=== PATIENT | male | born 1955 | race Caucasian/White ===

== ENCOUNTER → 2016-09-21 | Outpatient (CLI) | payer MEDICARE, MEDICAID ==
[~2016-09-21] VITALS: Ht 177.8 cm; Wt 64.4 kg
[~2016-09-21] MED LIST: CITA10TA59 PO; GABA300C8 PO; LORA-655 PO; NOR5T GT; NOR5T PO; SUCR1TAB PO; ZOLP10TA PO
[2016-09-21 09:30] VITALS: BP 124/82
[2016-09-21 10:30] VITALS: BP 128/78
[2016-09-21 12:44] LABS: Basophils # (auto) 0 uL; Basophils % (auto) 0.5 % (0.0-2.0); Eosinophils # (auto) 0.2 uL; Eosinophils % (auto) 2.4 % (0.0-7.0); Hematocrit 43.7 % (41.0-53.0); Hemoglobin 14.1 g/dL (13.5-17.5); Lymphocytes # (auto) 1.4 uL; Lymphocytes % (auto) 14.3 % (10.0-50.0); Mean Corpuscular Hemoglobin 30.5 pg (28.0-32.0); Mean Corpuscular Hgb Conc. 32.2 g/dL (32.0-36.0); Mean Corpuscular Volume 94.7 fL (80.0-100.0); Mean Platelet Volume 8.7 fL (7.4-10.4); Monocytes # (auto) 0.6 uL; Monocytes % (auto) 5.7 % (0.0-12.0); Neutrophils # (auto) 7.7 uL; Neutrophils % (auto) 77.1 % (37.0-80.0); Platelet Count (auto) 290 10^3/uL (140-450); Red Cell Distribution Width 14.3 % (11.6-16.0); White Blood Cell 9.9 10^3/uL (4.4-10.8)
[2016-09-21 13:10] LABS: Calcium 9.2 mg/dL (8.5-10.1); Magnesium 2.1 mg/dL (1.6-2.6); Potassium 3.7 mmol/L (3.5-5.1)
[2016-09-21 13:12] LABS: BUN/Creatinine Ratio 18.6
[2016-09-21 16:41] LABS: INR 1.03 (0.9-1.15); Partial Thromboplastin Time 27.5 sec (22.64-33.71); Prothrombin Time 10.6 sec (9.37-12.3)
== END | disposition home or self-care (01) ==
LOC: Rad HDHVI 09:08
PROVIDERS: ATTEND Internal Medicine Cardiovascular Disease
DX: I10 Essential (primary) hypertension (principal); E83.40 Disorders of magnesium metabolism, unspecified; D64.9 Anemia, unspecified
CPT/HCPCS: 36415; 71020; 80048; 83735; 85025; 85049; 85610; 85730; G0463

== ENCOUNTER → 2016-09-23 | Day surgery (SDC) | payer MEDICARE, MEDICAID ==
[~2016-09-23] MED LIST changes: +IOHEXOL 350 MG/ML 100ML IJ ONE; +LIDOCAINE 2%HCL (LOCAL ANESTH.) INJ 20ML MDV ONE; -NOR5T GT
== END | disposition home or self-care (01) ==
LOC: CATH 07:37
PROVIDERS: ATTEND Internal Medicine Cardiovascular Disease
DX: I42.9 Cardiomyopathy, unspecified (principal); I10 Essential (primary) hypertension
CPT/HCPCS: 93458; C1760; C1769; C1894; J1644; J7030; Q9967

== ENCOUNTER 2016-10-10 16:03 | Emergency (ER) | payer MEDICARE, MEDICAID ==
[~2016-10-10] VITALS: Ht 177.8 cm; Wt 65.8 kg
[~2016-10-10 16:03] MED LIST changes: -IOHEXOL 350 MG/ML 100ML IJ ONE; -LIDOCAINE 2%HCL (LOCAL ANESTH.) INJ 20ML MDV ONE
[2016-10-10 16:44] VITALS: BP 128/73
== END 2016-10-10 17:05 | disposition home or self-care (01) ==
LOC: ER 16:08
DX: J02.9 Acute pharyngitis, unspecified (principal); Z79.899 Other long term (current) drug therapy

== ENCOUNTER 2017-07-31 16:28 | Emergency (ER) | payer MEDICARE, MEDICAID ==
[~2017-07-31] VITALS: Ht 177.8 cm; Wt 67.1 kg
[~2017-07-31 16:28] MED LIST changes: +CITA-73 PO; -CITA10TA59 PO; +GABA-497 PO; -GABA300C8 PO; +HYD2I IL; +HYDR-4072 PO; -NOR5T PO; +TEMA30CA5 PO; -ZOLP10TA PO
[2017-07-31 17:01] VITALS: BP 162/78
[2017-07-31] MEDS ORDERED: LORazepam 2MG/ML-1ML VIAL IM ONE (17:15)
== END 2017-07-31 17:38 | disposition home or self-care (01) ==
LOC: EDBD 16:28 → ER 16:38
DX: G89.4 Chronic pain syndrome (principal); M54.5 Low back pain; Z98.890 Other specified postprocedural states
CPT/HCPCS: 96372

== ENCOUNTER 2018-02-07 14:23 | Inpatient (IN) | payer MEDICAID, MEDICARE ==
[~2018-02-07] VITALS: Ht 170.2 cm; Wt 59.0 kg
[~2018-02-07 14:23] MED LIST changes: -GABA-497 PO; +GABA300C10 PO
[2018-02-07 16:05] LABS: Basophils # (auto) 0 uL; Basophils % (auto) 0.7 % (0.0-2.0); Eosinophils # (auto) 0.1 uL; Eosinophils % (auto) 1.7 % (0.0-7.0); Hematocrit 36.8 % (41.0-53.0); Hemoglobin 11.5 g/dL (13.5-17.5); Lymphocytes # (auto) 0.8 uL; Lymphocytes % (auto) 13.3 % (10.0-50.0); Mean Corpuscular Hemoglobin 26.6 pg (28.0-32.0); Mean Corpuscular Hgb Conc. 31.3 g/dL (32.0-36.0); Mean Corpuscular Volume 84.8 fL (80.0-100.0); Monocytes # (auto) 0.3 uL; Monocytes % (auto) 5.3 % (0.0-12.0); Neutrophils # (auto) 4.7 uL; Nucleated Red Blood Cells % 0.1 %; Platelet Count (auto) 235 10^3/uL (140-450); Red Blood Cells 4.34 10^6/uL (4.5-5.90); Red Cell Distribution Width 18.9 % (11.8-14.3)
[2018-02-07 16:19] LABS: Alanine Aminotransferase 18 U/L (16-61); Albumin 3.5 g/dL (3.4-5.0); Alkaline Phosphatase 88 U/L (45-117); Anion Gap 8 (5-15); Aspartate Aminotransferase 14 U/L (15-37); Bilirubin, Total 0.1 mg/dL (0.2-1.0); Blood Alcohol < 3.0 mg/dL (0-5); Blood Urea Nitrogen 16 mg/dL (7-18); Calcium 8.4 mg/dL (8.5-10.1); Carbon Dioxide 21 mmol/L (21-32); Chloride 113 mmol/L (98-107); GFR African American 126 mL/min; GFR Non-African American 104 mL/min; Glucose 92 mg/dL (74-106); Potassium 3.5 mmol/L (3.5-5.1); Sodium 142 mmol/L (136-145); Total Protein 7.3 g/dL (6.4-8.2)
[2018-02-07] MEDS ORDERED: PIPERACILLIN-TAZOB 3.375GM 100 ML IV ONE (17:15)
[2018-02-07] MEDS ORDERED: LORazepam 2MG/ML-1ML VIAL IV PRN (18:15)
[2018-02-07] MEDS ORDERED: LORazepam 0.5 MG TAB PO PRN (18:15)
[2018-02-07] MEDS ORDERED: MORPHINE SULF INJ 2 MG/ML SYRINGE 1ML IV PRN (18:30)
[2018-02-07] MEDS ORDERED: DOCUSATE SOD 100 MG CAP PO PRN (18:30)
[2018-02-07] MEDS ORDERED: NITROGLYCERIN 0.4 MG SL TAB SL PRN (18:30)
[2018-02-07] MEDS ORDERED: ONDANSETRON HCL 4 MG/2 ML VIAL IV PRN (18:30)
[2018-02-07] MEDS ORDERED: ACETAMINOPHEN 325 MG TAB PO PRN (18:30)
[2018-02-07] MEDS ORDERED: cloNIDine HCL 0.1 MG TAB PO PRN (20:45)
[2018-02-07 21:00] VITALS: BP 135/75
[2018-02-07] MEDS: SODIUM CHLOR 0.9% PF (SALINE LOCK) 10ML VIAL/SYR IV SCH (21:55)
[2018-02-07] MEDS: SUCRALFATE 1 GM TAB PO SCH (21:55)
[2018-02-07] MEDS: GABAPENTIN 300 MG CAP PO SCH (21:55)
[2018-02-07 22:00] VITALS: BP 135/73
[2018-02-08] MEDS: PIPERACILLIN-TAZOB 3.375GM 100 ML IV SCH ×2 (00:53→05:45)
[2018-02-08 05:00] VITALS: BP 123/70
[2018-02-08] MEDS: SODIUM CHLOR 0.9% PF (SALINE LOCK) 10ML VIAL/SYR IV SCH ×2 (05:45→13:45)
[2018-02-08] MEDS: SUCRALFATE 1 GM TAB PO SCH ×3 (05:46→17:50)
[2018-02-08] MEDS: GABAPENTIN 300 MG CAP PO SCH ×2 (05:46→13:45)
[2018-02-08 05:50] LABS: Basophils # (auto) 0 uL; Eosinophils # (auto) 0.2 uL; Lymphocytes # (auto) 1.3 uL; Neutrophils # (auto) 2.2 uL; Nucleated Red Blood Cells % 0.1 %
[2018-02-08 05:52] LABS: Basophils % (auto) 1.1 % (0.0-2.0); Eosinophils % (auto) 4.5 % (0.0-7.0); Hematocrit 35.4 % (41.0-53.0); Lymphocytes % (auto) 32.4 % (10.0-50.0); Mean Corpuscular Hemoglobin 26.4 pg (28.0-32.0); Monocytes # (auto) 0.3 uL; Monocytes % (auto) 8.2 % (0.0-12.0); Neutrophils % (auto) 53.8 % (37.0-80.0); Platelet Count (auto) 234 10^3/uL (140-450); Red Blood Cells 4.16 10^6/uL (4.5-5.90); Red Cell Distribution Width 18.5 % (11.8-14.3); White Blood Cell 4.1 10^3/uL (4.4-10.8)
[2018-02-08 06:08] LABS: Potassium 3.5 mmol/L (3.5-5.1)
[2018-02-08 06:13] LABS: Albumin 3.2 g/dL (3.4-5.0); BUN/Creatinine Ratio 18.2; Calcium 8.5 mg/dL (8.5-10.1)
[2018-02-08 06:15] LABS: Bilirubin, Total 0.3 mg/dL (0.2-1.0); Total Protein 6.9 g/dL (6.4-8.2)
[2018-02-08] MEDS: HYDROcodone-ACET 10/325MG TAB PO PRN ×2 (07:59→13:45)
[2018-02-08 08:30] VITALS: BP 138/76
[2018-02-08] MEDS ORDERED: CITALOPRAM HYDROBR 20 MG TAB PO SCH (10:00)
[2018-02-08] MEDS ORDERED: MULTIPLE VITAMIN TAB PO SCH (10:00)
[2018-02-08] MEDS ORDERED: TOPI25TA84 (11:47)
[2018-02-08 12:30] VITALS: BP 135/85
[2018-02-08] MEDS ORDERED: LORazepam 0.5 MG TAB PO PRN (13:30)
[2018-02-08 14:38] VITALS: BP 135/85
[2018-02-08 18:02] VITALS: BP 157/77
== END 2018-02-08 19:25 | disposition home or self-care (01) | DRG 91 ==
LOC: ER 14:23 → EDBD 14:23 → TELE 14:24 → TELE-WESTW 20:27
PROVIDERS: ADMIT Internal Medicine; ATTEND Internal Medicine
DX: T85.695A Other mechanical complication of other nervous system device, implant or graft, initial encounter (principal); G92 Toxic encephalopathy; T40.691A Poisoning by other narcotics, accidental (unintentional), initial encounter; E83.51 Hypocalcemia; G40.909 Epilepsy, unspecified, not intractable, without status epilepticus; E86.0 Dehydration; K59.00 Constipation, unspecified; Y83.9 Surgical procedure, unspecified as the cause of abnormal reaction of the patient, or of later complication, without mention of misadventure at the time of the procedure; M25.562 Pain in left knee; M25.561 Pain in right knee; I10 Essential (primary) hypertension; G89.4 Chronic pain syndrome; D63.8 Anemia in other chronic diseases classified elsewhere; F17.210 Nicotine dependence, cigarettes, uncomplicated; F41.1 Generalized anxiety disorder; J32.0 Chronic maxillary sinusitis; Z82.0 Family history of epilepsy and other diseases of the nervous system; Y92.89 Other specified places as the place of occurrence of the external cause
CPT/HCPCS: 36415; 70450; 80053; 80320; 84484; 85025; 93886; 96374; J2543

== ENCOUNTER → 2018-07-13 | Outpatient (CLI) | payer MEDICARE ==
[~2018-07-13] MED LIST changes: -HYD2I IL; -TEMA30CA5 PO; +TOPI25TA84
== END | disposition home or self-care (01) ==
LOC: Rad HDHVI 13:50
PROVIDERS: ATTEND Internal Medicine Cardiovascular Disease
DX: I20.0 Unstable angina (principal); J44.9 Chronic obstructive pulmonary disease, unspecified; R07.89 Other chest pain
CPT/HCPCS: 93306

== ENCOUNTER 2021-01-12 21:02 | Emergency (ER) | payer MEDICARE ==
[~2021-01-12] VITALS: Ht 172.7 cm; Wt 59.0 kg
[2021-01-12 21:02] VITALS: BP 131/78
[2021-01-12 21:55] LABS: Basophils # (auto) 0 10 ^3/uL (0-0.2); Basophils % (auto) 0.3 % (0.0-2.0); Eosinophils # (auto) 0 10 ^3/uL (0-0.8); Eosinophils % (auto) 0.2 % (0.0-7.0); Hematocrit 40.4 % (41.0-53.0); Hemoglobin 13.1 g/dL (13.5-17.5); Lymphocytes # (auto) 0.6 10 ^3/uL (0.4-5.4); Lymphocytes % (auto) 5.8 % (10.0-50.0); Mean Corpuscular Hemoglobin 30.5 pg (28.0-32.0); Mean Corpuscular Hgb Conc. 32.4 g/dL (32.0-36.0); Mean Corpuscular Volume 94.1 fL (80.0-100.0); Monocytes # (auto) 0.6 10 ^3/uL (0-1.3); Monocytes % (auto) 5.9 % (0.0-12.0); Neutrophils # (auto) 8.4 10 ^3/uL (1.6-8.6); Neutrophils % (auto) 87.8 % (37.0-80.0); Red Blood Cells 4.29 10^6/uL (4.5-5.90); Red Cell Distribution Width 16.4 % (11.8-14.3); White Blood Cell 9.6 10^3/uL (4.4-10.8)
[2021-01-12 22:14] LABS: Albumin 3.7 g/dL (3.4-5.0); Anion Gap 6 (5-15); Blood Urea Nitrogen 35 mg/dL (7-18); Calcium 9.4 mg/dL (8.5-10.1); Carbon Dioxide 26 mmol/L (21-32); Chloride 112 mmol/L (98-107); Glucose 132 mg/dL (74-106); Magnesium 2.9 mg/dL (1.6-2.6); Potassium 4.5 mmol/L (3.5-5.1); Sodium 144 mmol/L (136-145)
[2021-01-12 22:16] LABS: INR 0.97 (0.9-1.15)
[2021-01-12 22:21] LABS: Alanine Aminotransferase 31 U/L (16-61); Alkaline Phosphatase 52 U/L (45-117); Aspartate Aminotransferase 25 U/L (15-37); BUN/Creatinine Ratio 25.4; Bilirubin, Total 0.2 mg/dL (0.2-1.0); GFR African American 66 mL/min; GFR Non-African American 55 mL/min; Total Protein 6.6 g/dL (6.4-8.2)
== END 2021-01-12 22:32 | disposition left against medical advice (07) ==
LOC: ER 21:04
DX: R11.10 Vomiting, unspecified (principal); R53.1 Weakness; Z53.21 Procedure and treatment not carried out due to patient leaving prior to being seen by health care provider
CPT/HCPCS: 36415; 80053; 83735; 83880; 84484; 85025; 85610; 85730

== ENCOUNTER 2021-10-03 10:04 | Inpatient (IN) | payer MEDICARE ==
[~2021-10-03] VITALS: Ht 170.2 cm; Wt 53.8 kg
[2021-10-03 11:23] LABS: Basophils # (auto) 0 10 ^3/uL (0-0.2); Basophils % (auto) 0.2 % (0.0-2.0); Eosinophils # (auto) 0.1 10 ^3/uL (0-0.8); Eosinophils % (auto) 0.6 % (0.0-7.0); Hematocrit 35.5 % (41.0-53.0); Hemoglobin 11.8 g/dL (13.5-17.5); Lymphocytes # (auto) 1.1 10 ^3/uL (0.4-5.4); Lymphocytes % (auto) 7.6 % (10.0-50.0); Mean Corpuscular Hemoglobin 29.2 pg (28.0-32.0); Mean Corpuscular Hgb Conc. 33.1 g/dL (32.0-36.0); Mean Corpuscular Volume 88.2 fL (80.0-100.0); Monocytes # (auto) 0.9 10 ^3/uL (0-1.3); Monocytes % (auto) 6.4 % (0.0-12.0); Neutrophils # (auto) 12.3 10 ^3/uL (1.6-8.6); Neutrophils % (auto) 85.2 % (37.0-80.0); Nucleated Red Blood Cells % 0.1 %; Red Blood Cells 4.03 10^6/uL (4.5-5.90); Red Cell Distribution Width 13.2 % (11.8-14.3); White Blood Cell 14.4 10^3/uL (4.4-10.8)
[2021-10-03 11:44] LABS: Albumin 3.1 g/dL (3.4-5.0)
[2021-10-03 11:47] LABS: BUN/Creatinine Ratio 28.3; Bilirubin, Total 0.3 mg/dL (0.2-1.0); Total Protein 6.7 g/dL (6.4-8.2)
[2021-10-03 11:56] LABS: Potassium 2.7 mmol/L (3.5-5.1)
[2021-10-03] MEDS ORDERED: IOHEXOL 300 MG/ML 100ML BOTTLE IJ ONE (12:23)
[2021-10-03] MEDS ORDERED: PANTOPRAZOLE 40 MG TAB PO ONE (12:30)
[2021-10-03] MEDS ORDERED: DONNATAL 5ml ORAL Elix (BELLADONNA ALK-PHENOBARB) PO ONE (12:30)
[2021-10-03] MEDS ORDERED: D5W/SOD CHL 0.45%/KCL 40MEQ 1,000 ML IV ONE (12:30)
[2021-10-03] MEDS ORDERED: SODIUM CHLORIDE 0.9% 1,000 ML IV ONE (12:30)
[2021-10-03] MEDS ORDERED: LIDOCAINE VISCOUS 2% 15ML UD PO ONE (12:30)
[2021-10-03] MEDS ORDERED: PROCHLORPERAZINE MALEATE 10 MG TAB PO ONE (12:30)
[2021-10-03 14:21] LABS: Magnesium 2.4 mg/dL (1.6-2.6)
[2021-10-03 14:23] LABS: INR 1.08 (0.9-1.15)
[2021-10-03] MEDS ORDERED: HYDROmorphone HCL 2 MG/ML VL IV ONE (14:45)
[2021-10-03] MEDS ORDERED: PROMETHAZINE HCL 25 MG/ML 1ML IV ONE (14:45)
[2021-10-03 14:57] LABS: Urine Bacteria FEW /hpf (None Seen); Urine Blood Negative /uL (Negative); Urine Specific Gravity 1.032 (1.001-1.035); Urine WBC 1 /hpf (0 - 3)
[2021-10-03 15:15] LABS: Alcohol, Urine < 3.0 mg/dL (0-10); Amphetamine Screen, Urine NEGATIVE (NEGATIVE); Barbiturate Scree,Urine NEGATIVE (NEGATIVE); Benzodiazephine Screen, Urine POSITIVE (NEGATIVE); Cannabinoid Screen, Urine NEGATIVE (NEGATIVE); Cocaine Screen, Urine NEGATIVE (NEGATIVE); Opiate Scree,Urine NEGATIVE (NEGATIVE); Phencyclidine Screen, Urine NEGATIVE (NEGATIVE)
[2021-10-03] MEDS ORDERED: LORazepam 0.5 MG TAB PO PRN (17:00)
[2021-10-03] MEDS ORDERED: ACETAMINOPHEN 325 MG TAB PO PRN (17:00)
[2021-10-03] MEDS ORDERED: ALUM & MAG HYDROX-SIMETH LIQ(MAALOX) 30 ML PO PRN (17:00)
[2021-10-03] MEDS ORDERED: DOCUSATE SOD 100 MG CAP PO PRN (17:00)
[2021-10-03] MEDS ORDERED: NITROGLYCERIN 0.4 MG SL TAB SL PRN (17:00)
[2021-10-03] MEDS: SODIUM CHLORIDE 0.9% 1,000 ML IV SCH (17:19)
[2021-10-03] MEDS: HYDROmorphone HCL 2 MG/ML VL IV PRN ×2 (17:33→21:40)
[2021-10-03] MEDS: ONDANSETRON HCL 4 MG/2 ML VIAL IV PRN ×2 (17:34→21:40)
[2021-10-03] MEDS: MORPHINE SULFATE INJECTION 2 MG/ML SYRG IV PRN (21:08)
[2021-10-04] MEDS: ONDANSETRON HCL 4 MG/2 ML VIAL IV PRN ×3 (01:31→10:52)
[2021-10-04] MEDS: HYDROmorphone HCL 2 MG/ML VL IV PRN ×5 (01:32→22:13)
[2021-10-04] MEDS: SODIUM CHLORIDE 0.9% 1,000 ML IV SCH (06:42)
[2021-10-04] MEDS: cefTRIAXone 1GM/50ML D5W 50 ML IV SCH (10:51)
[2021-10-04] MEDS: PANTOPRAZOLE 40 MG/10 ML VIAL INJ IV SCH ×2 (11:04→22:12)
[2021-10-04 11:20] LABS: Basophils # (auto) 0 10 ^3/uL (0-0.2); Basophils % (auto) 0.4 % (0.0-2.0); Eosinophils # (auto) 0.1 10 ^3/uL (0-0.8); Eosinophils % (auto) 1.1 % (0.0-7.0); Hemoglobin 9.6 g/dL (13.5-17.5); Lymphocytes # (auto) 1.1 10 ^3/uL (0.4-5.4); Mean Corpuscular Hemoglobin 29.4 pg (28.0-32.0); Monocytes # (auto) 0.7 10 ^3/uL (0-1.3); Monocytes % (auto) 7.5 % (0.0-12.0); Neutrophils # (auto) 7.9 10 ^3/uL (1.6-8.6); Nucleated Red Blood Cells % 0.1 %; Red Blood Cells 3.26 10^6/uL (4.5-5.90); Red Cell Distribution Width 13.2 % (11.8-14.3); White Blood Cell 9.9 10^3/uL (4.4-10.8)
[2021-10-04 11:30] LABS: Potassium 3.5 mmol/L (3.5-5.1)
[2021-10-04 11:36] LABS: Albumin 2.4 g/dL (3.4-5.0); BUN/Creatinine Ratio 27.2; Bilirubin, Total 0.2 mg/dL (0.2-1.0); Calcium 7.7 mg/dL (8.5-10.1); Total Protein 5.3 g/dL (6.4-8.2)
[2021-10-04 17:00] VITALS: BP 113/64
[2021-10-04] MEDS: NYSTATIN (MOUTH-THROAT) 500,000 UNITS/5 ML SUSP MT SCH ×2 (17:36→22:12)
[2021-10-04 18:34] VITALS: BP 113/64
[2021-10-04 22:00] VITALS: BP 117/67
[2021-10-05] MEDS: SODIUM CHLORIDE 0.9% 1,000 ML IV SCH ×3 (00:36→20:40)
[2021-10-05] MEDS: MORPHINE SULFATE INJECTION 2 MG/ML SYRG IV PRN (02:12)
[2021-10-05] MEDS: HYDROmorphone HCL 2 MG/ML VL IV PRN ×4 (04:05→20:30)
[2021-10-05 05:00] VITALS: BP 121/74
[2021-10-05] MEDS: NYSTATIN (MOUTH-THROAT) 500,000 UNITS/5 ML SUSP MT SCH ×4 (05:44→21:56)
[2021-10-05 07:32] LABS: Basophils # (auto) 0 10 ^3/uL (0-0.2); Basophils % (auto) 0.6 % (0.0-2.0); Eosinophils # (auto) 0.1 10 ^3/uL (0-0.8); Eosinophils % (auto) 1.3 % (0.0-7.0); Hematocrit 28.4 % (41.0-53.0); Hemoglobin 9.5 g/dL (13.5-17.5); Lymphocytes % (auto) 13.5 % (10.0-50.0); Mean Corpuscular Hemoglobin 29.7 pg (28.0-32.0); Mean Corpuscular Hgb Conc. 33.6 g/dL (32.0-36.0); Mean Corpuscular Volume 88.6 fL (80.0-100.0); Monocytes # (auto) 0.5 10 ^3/uL (0-1.3); Monocytes % (auto) 6.8 % (0.0-12.0); Neutrophils # (auto) 5.8 10 ^3/uL (1.6-8.6); Neutrophils % (auto) 77.8 % (37.0-80.0); Nucleated Red Blood Cells % 0.1 %; Red Cell Distribution Width 13.3 % (11.8-14.3); White Blood Cell 7.5 10^3/uL (4.4-10.8)
[2021-10-05 08:02] LABS: BUN/Creatinine Ratio 28.2; Calcium 7.9 mg/dL (8.5-10.1); Magnesium 3.5 mg/dL (1.6-2.6); Potassium 3.6 mmol/L (3.5-5.1)
[2021-10-05] MEDS: PANTOPRAZOLE 40 MG/10 ML VIAL INJ IV SCH ×2 (08:23→21:56)
[2021-10-05] MEDS: cefTRIAXone 1GM/50ML D5W 50 ML IV SCH (08:25)
[2021-10-05 08:51] VITALS: BP 118/65
[2021-10-05] MEDS ORDERED: LIDOCAINE VISCOUS 2% 15ML UD ONE (11:57)
[2021-10-05] MEDS ORDERED: SODIUM CHLORIDE LOCK 10 ML ONE (12:10)
[2021-10-05] MEDS ORDERED: MIDAZOLAM HCL 2MG/2ML 2ml VIAL (1mg/ml) ONE (12:10)
[2021-10-05] MEDS ORDERED: PROPOFOL 10 MG/ML 20 ML IV ONE (12:10)
[2021-10-05] MEDS ORDERED: fentaNYL CITRATE 100 MCG/2 ML VL ONE (12:11)
[2021-10-05 13:00] VITALS: BP_SYST 100; BP_SYST 128; BP_DIAS 51; BP_DIAS 58
[2021-10-05 16:56] VITALS: BP 120/65
[2021-10-05 20:00] VITALS: BP 136/66
[2021-10-06] MEDS: HYDROcodone-ACET 5/325MG TAB PO PRN ×2 (01:49→06:11)
[2021-10-06] MEDS: NYSTATIN (MOUTH-THROAT) 500,000 UNITS/5 ML SUSP MT SCH ×2 (05:32→12:05)
[2021-10-06 06:00] VITALS: BP 119/73
[2021-10-06 07:39] LABS: Basophils # (auto) 0.1 10 ^3/uL (0-0.2); Eosinophils # (auto) 0.3 10 ^3/uL (0-0.8); Eosinophils % (auto) 4.4 % (0.0-7.0); Hematocrit 28.1 % (41.0-53.0); Hemoglobin 9.3 g/dL (13.5-17.5); Lymphocytes # (auto) 1.8 10 ^3/uL (0.4-5.4); Lymphocytes % (auto) 28.5 % (10.0-50.0); Mean Corpuscular Hemoglobin 29.2 pg (28.0-32.0); Mean Corpuscular Hgb Conc. 33.2 g/dL (32.0-36.0); Monocytes # (auto) 0.5 10 ^3/uL (0-1.3); Monocytes % (auto) 8.1 % (0.0-12.0); Neutrophils # (auto) 3.7 10 ^3/uL (1.6-8.6); Red Blood Cells 3.19 10^6/uL (4.5-5.90); Red Cell Distribution Width 13.5 % (11.8-14.3); White Blood Cell 6.4 10^3/uL (4.4-10.8)
[2021-10-06] MEDS: PANTOPRAZOLE 40 MG/10 ML VIAL INJ IV SCH (08:56)
[2021-10-06 09:00] VITALS: BP 114/62
[2021-10-06] MEDS: HYDROmorphone HCL 2 MG/ML VL IV PRN ×2 (09:52→14:55)
[2021-10-06 12:59] VITALS: BP 116/48
[2021-10-06] MEDS ORDERED: PANT40TA2 PO (14:37)
[2021-10-06] MEDS ORDERED: SUCR1TAB22 OR (14:37)
[2021-10-06 16:16] VITALS: BP 116/50
[2021-10-06 16:52] VITALS: BP 127/74
== END 2021-10-06 17:34 | disposition home or self-care (01) | DRG 383 ==
LOC: ER 10:04 → EDUNIT# 10:04 → EDBD 10:04 → OVERFLOW 16:46 → CENTRAL 10-04 16:09
PROVIDERS: ADMIT Family Medicine; ATTEND Internal Medicine Geriatric Medicine
PROC: 0DB98ZX Excision of Duodenum, Via Natural or Artificial Opening Endoscopic, Diagnostic (ICD-10-PCS; principal; 2021-10-05 12:11)
DX: K26.9 Duodenal ulcer, unspecified as acute or chronic, without hemorrhage or perforation (principal); E43 Unspecified severe protein-calorie malnutrition; E87.1 Hypo-osmolality and hyponatremia; K31.5 Obstruction of duodenum; E87.6 Hypokalemia; K31.89 Other diseases of stomach and duodenum; G89.29 Other chronic pain; R73.9 Hyperglycemia, unspecified; D64.9 Anemia, unspecified; F41.9 Anxiety disorder, unspecified; Z20.822 Contact with and (suspected) exposure to COVID-19; K21.00 Gastro-esophageal reflux disease with esophagitis, without bleeding; K29.80 Duodenitis without bleeding; Z79.891 Long term (current) use of opiate analgesic; Z87.11 Personal history of peptic ulcer disease
CPT/HCPCS: 36415; 71045; 74018; 74177; 80048; 80053; 80307; 81001; 83690; 83735; 84484; 85025; 85610; 85730; 86850; 86900; 86901; 87426; 93005; 96361; 96365; 96367; 96375; 96376; C9113; G0378; J0696; J2250; J2405; J2704; Q0164

== ENCOUNTER 2022-10-09 13:35 | Inpatient (IN) | payer MEDICARE ==
[~2022-10-09] VITALS: Ht 172.7 cm; Wt 72.0 kg
[~2022-10-09 13:35] MED LIST changes: +PANT40TA2 PO; -SUCR1TAB PO; +SUCR1TAB22 OR
[2022-10-09 14:24] LABS: Basophils # (auto) 0.1 10 ^3/uL (0-0.2); Basophils % (auto) 1.1 % (0.0-2.0); Eosinophils # (auto) 0.2 10 ^3/uL (0-0.8); Eosinophils % (auto) 4.2 % (0.0-7.0); Hematocrit 46.3 % (41.0-53.0); Hemoglobin 14.9 g/dL (13.5-17.5); Lymphocytes # (auto) 1.7 10 ^3/uL (0.4-5.4); Lymphocytes % (auto) 28.9 % (10.0-50.0); Mean Corpuscular Hemoglobin 30.2 pg (28.0-32.0); Mean Corpuscular Hgb Conc. 32.3 g/dL (32.0-36.0); Mean Corpuscular Volume 93.4 fL (80.0-100.0); Monocytes # (auto) 0.4 10 ^3/uL (0-1.3); Monocytes % (auto) 7.1 % (0.0-12.0); Neutrophils # (auto) 3.4 10 ^3/uL (1.6-8.6); Neutrophils % (auto) 58.7 % (37.0-80.0); Nucleated Red Blood Cells % 0.1 %; Red Blood Cells 4.95 10^6/uL (4.5-5.90); Red Cell Distribution Width 14.5 % (11.8-14.3); White Blood Cell 5.8 10^3/uL (4.4-10.8)
[2022-10-09 14:44] LABS: Albumin 3.2 g/dL (3.4-5.0); Calcium 8.4 mg/dL (8.5-10.1); Potassium 4.8 mmol/L (3.5-5.1)
[2022-10-09 14:47] LABS: BUN/Creatinine Ratio 20.4; Bilirubin, Total 0.4 mg/dL (0.2-1.0); Total Protein 6.3 g/dL (6.4-8.2)
[2022-10-09] MEDS ORDERED: FUROSEMIDE 40 MG/4 ML VIAL IV ONE (15:45)
[2022-10-09] MEDS ORDERED: ENOXAPARIN SOD 60 MG/0.6 ML SYRINGE SC ONE (15:45)
[2022-10-09] MEDS ORDERED: IOHEXOL 350 MG/ML 100ML IJ ONE (18:14)
[2022-10-09] MEDS ORDERED: AZITHROMYCIN 500MG/ 250ML 250 ML IV ONE (21:00)
[2022-10-09] MEDS ORDERED: ONDANSETRON HCL 4 MG/2 ML VIAL IV PRN (21:00)
[2022-10-09] MEDS ORDERED: ACETAMINOPHEN 325 MG TAB PO PRN (21:00)
[2022-10-09] MEDS: SODIUM CHLOR 0.9% PF (SALINE LOCK) 10ML VIAL/SYR IV SCH (22:28)
[2022-10-09] MEDS ORDERED: NITROGLYCERIN 0.4 MG SL TAB SL PRN (22:30)
[2022-10-09] MEDS ORDERED: MORPHINE SULFATE INJ 2 MG/ml SYRG IV PRN (22:30)
[2022-10-10 05:34] LABS: Basophils # (auto) 0 10 ^3/uL (0-0.2); Basophils % (auto) 1.1 % (0.0-2.0); Eosinophils # (auto) 0.2 10 ^3/uL (0-0.8); Eosinophils % (auto) 4.7 % (0.0-7.0); Hematocrit 43.7 % (41.0-53.0); Hemoglobin 13.9 g/dL (13.5-17.5); Lymphocytes # (auto) 1.4 10 ^3/uL (0.4-5.4); Mean Corpuscular Hemoglobin 30.5 pg (28.0-32.0); Mean Corpuscular Hgb Conc. 31.9 g/dL (32.0-36.0); Mean Corpuscular Volume 95.8 fL (80.0-100.0); Monocytes # (auto) 0.4 10 ^3/uL (0-1.3); Monocytes % (auto) 9.8 % (0.0-12.0); Neutrophils % (auto) 49.4 % (37.0-80.0); Nucleated Red Blood Cells % 0.1 %; Red Blood Cells 4.56 10^6/uL (4.5-5.90); Red Cell Distribution Width 15.3 % (11.8-14.3); White Blood Cell 4.1 10^3/uL (4.4-10.8)
[2022-10-10 05:54] LABS: Albumin 2.8 g/dL (3.4-5.0); Calcium 7.9 mg/dL (8.5-10.1); Potassium 3.7 mmol/L (3.5-5.1)
[2022-10-10 05:58] LABS: BUN/Creatinine Ratio 22.5; Bilirubin, Total 0.5 mg/dL (0.2-1.0); Total Protein 5.3 g/dL (6.4-8.2)
[2022-10-10] MEDS: SODIUM CHLOR 0.9% PF (SALINE LOCK) 10ML VIAL/SYR IV SCH ×3 (06:00→23:55)
[2022-10-10] MEDS ORDERED: FAMOTIDINE (10MG/ML) 2ML VL IV SCH (10:00)
[2022-10-10] MEDS: PANTOPRAZOLE 40 MG TAB PO SCH (10:05)
[2022-10-10] MEDS: ENOXAPARIN SOD 40 MG/0.4 ML SYRINGE SC SCH (10:05)
[2022-10-10] MEDS: FUROSEMIDE 40 MG/4 ML VIAL IV SCH (10:06)
[2022-10-10] MEDS: DOCUSATE SOD 100 MG CAP PO PRN (12:19)
[2022-10-10] MEDS ORDERED: POTASSIUM CHL 20 Meq TABLET PO ONE (12:30)
[2022-10-10] MEDS ORDERED: LOVA40TA72 PO (12:34)
[2022-10-10 13:05] LABS: Cholesterol 134 mg/dL (< 200); HDL Cholesterol 36 mg/dL (40-59); LDL Cholesterol 85 mg/dL (< 100); Triglycerides 92 mg/dL (< 150)
[2022-10-10] MEDS: AZITHROMYCIN 500MG/ 250ML 250 ML IV SCH (23:27)
[2022-10-11] VITALS (7 sets, daily range): BP systolic 108–122; BP diastolic 75–86
[2022-10-11] MEDS: SODIUM CHLOR 0.9% PF (SALINE LOCK) 10ML VIAL/SYR IV SCH ×3 (05:12→21:31)
[2022-10-11 06:41] LABS: Calcium 8.8 mg/dL (8.5-10.1); Potassium 3.8 mmol/L (3.5-5.1)
[2022-10-11] MEDS: FUROSEMIDE 40 MG/4 ML VIAL IV SCH (09:02)
[2022-10-11] MEDS: PANTOPRAZOLE 40 MG TAB PO SCH (09:05)
[2022-10-11] MEDS: ENOXAPARIN SOD 40 MG/0.4 ML SYRINGE SC SCH (09:05)
[2022-10-11] MEDS: POTASSIUM CHL 20 Meq TABLET PO SCH (09:05)
[2022-10-11] MEDS: CARVEDILOL 3.125 MG TAB PO SCH ×2 (13:09→21:22)
[2022-10-11] MEDS ORDERED: metOLazone 5 MG TAB PO ONE (16:30)
[2022-10-11 16:53] LABS: INR 1.13 (0.9-1.15)
[2022-10-11] MEDS ORDERED: FUROSEMIDE 40 MG/4 ML VIAL IV ONE (17:45)
[2022-10-11] MEDS: AZITHROMYCIN 500MG/ 250ML 250 ML IV SCH (21:22)
[2022-10-12] VITALS (16 sets, daily range): BP systolic 82–132; BP diastolic 52–85
[2022-10-12] MEDS: HYDROcodone-ACET 5/325MG TAB PO PRN ×2 (01:58→06:20)
[2022-10-12 04:49] LABS: Urine Bacteria NONE SEEN /hpf (None Seen); Urine Blood Negative /uL (Negative); Urine Specific Gravity 1.017 (1.001-1.035); Urine WBC 1 /hpf (0 - 3)
[2022-10-12] MEDS: SODIUM CHLOR 0.9% PF (SALINE LOCK) 10ML VIAL/SYR IV SCH ×3 (06:21→21:21)
[2022-10-12 06:36] LABS: BUN/Creatinine Ratio 18.4; Calcium 9.1 mg/dL (8.5-10.1); Potassium 4.2 mmol/L (3.5-5.1)
[2022-10-12] MEDS ORDERED: HYDROcodone-ACET 10/325MG TAB PO PRN (09:15)
[2022-10-12] MEDS ORDERED: HYDROcodone-ACET 5/325MG TAB PO ONE (09:15)
[2022-10-12] MEDS: ENOXAPARIN SOD 40 MG/0.4 ML SYRINGE SC SCH (09:27)
[2022-10-12] MEDS: CARVEDILOL 3.125 MG TAB PO SCH ×2 (09:27→21:20)
[2022-10-12] MEDS: FUROSEMIDE 40 MG/4 ML VIAL IV SCH (09:27)
[2022-10-12] MEDS ORDERED: LIDOCAINE 2%HCL (LOCAL ANESTH.) INJ 20ML MDV ONE (09:29)
[2022-10-12] MEDS ORDERED: IODIXANOL 320MG/ML 100ML BTL IV ONE (09:29)
[2022-10-12] MEDS ORDERED: HEPARIN SODIUM (PORCINE) 5000 UNITS/ML 1ML VIAL ONE (09:47)
[2022-10-12] MEDS ORDERED: ANGIOMAX 250 MG VIAL IV ONE (09:47)
[2022-10-12] MEDS ORDERED: SODIUM CHL 0.9% 0 ML ONE (09:48)
[2022-10-12] MEDS ORDERED: MIDAZOLAM HCL 2MG/2ML 2ml VIAL (1mg/ml) ONE (09:48)
[2022-10-12] MEDS ORDERED: VERAPAMIL 2.5MG/ML INJ 2ML VIAL IV ONE (09:48)
[2022-10-12] MEDS ORDERED: fentaNYL CITRATE 100 MCG/2 ML VL ONE (09:48)
[2022-10-12] MEDS: POTASSIUM CHL 20 Meq TABLET PO SCH (14:23)
[2022-10-12] MEDS: PANTOPRAZOLE 40 MG TAB PO SCH (14:24)
[2022-10-12] MEDS: NICOTINE 21MG/24 HR TOPICAL PATCH TD SCH (14:27)
[2022-10-12] MEDS: HYDROcodone-ACET 10/325MG TAB PO PRN ×2 (15:13→21:18)
[2022-10-12] MEDS: HYDROmorphone HCL 2 MG/ML VL/or syr IV PRN ×2 (17:40→23:24)
[2022-10-12] MEDS: AZITHROMYCIN 500MG/ 250ML 250 ML IV SCH (21:21)
[2022-10-13] MEDS: HYDROcodone-ACET 10/325MG TAB PO PRN ×3 (03:26→23:23)
[2022-10-13 05:00] VITALS: BP 108/61
[2022-10-13] MEDS: SODIUM CHLOR 0.9% PF (SALINE LOCK) 10ML VIAL/SYR IV SCH ×3 (05:57→21:27)
[2022-10-13] MEDS: EMPAGLIFLOZIN 10 MG TAB PO SCH (06:05)
[2022-10-13 06:36] LABS: Potassium 5.2 mmol/L (3.5-5.1)
[2022-10-13 06:46] LABS: BUN/Creatinine Ratio 20.5; Calcium 8.3 mg/dL (8.5-10.1)
[2022-10-13] MEDS: HYDROmorphone HCL 2 MG/ML VL/or syr IV PRN ×2 (08:16→19:53)
[2022-10-13 09:00] VITALS: BP 120/78
[2022-10-13] MEDS: FUROSEMIDE 40 MG/4 ML VIAL IV SCH (09:32)
[2022-10-13] MEDS: POTASSIUM CHL 20 Meq TABLET PO SCH (09:33)
[2022-10-13] MEDS: CARVEDILOL 3.125 MG TAB PO SCH ×2 (09:33→21:16)
[2022-10-13] MEDS: ENOXAPARIN SOD 40 MG/0.4 ML SYRINGE SC SCH (09:33)
[2022-10-13] MEDS: PANTOPRAZOLE 40 MG TAB PO SCH (09:33)
[2022-10-13] MEDS: NICOTINE 21MG/24 HR TOPICAL PATCH TD SCH (09:34)
[2022-10-13] MEDS ORDERED: CARVEDILOL 3.125 MG TAB PO ONE (11:30)
[2022-10-13 12:55] VITALS: BP 130/81
[2022-10-13 16:51] VITALS: BP 103/59
[2022-10-13] MEDS: AZITHROMYCIN 500MG/ 250ML 250 ML IV SCH (21:17)
[2022-10-13] MEDS: DOCUSATE SOD 100 MG CAP PO PRN (21:23)
[2022-10-13 22:00] VITALS: BP 119/75
[2022-10-14 05:00] VITALS: BP 106/67
[2022-10-14] MEDS: SODIUM CHLOR 0.9% PF (SALINE LOCK) 10ML VIAL/SYR IV SCH ×2 (06:11→14:00)
[2022-10-14] MEDS: EMPAGLIFLOZIN 10 MG TAB PO SCH (06:28)
[2022-10-14 09:00] VITALS: BP 96/62
[2022-10-14] MEDS: PANTOPRAZOLE 40 MG TAB PO SCH (09:52)
[2022-10-14] MEDS: ENOXAPARIN SOD 40 MG/0.4 ML SYRINGE SC SCH (09:52)
[2022-10-14] MEDS: POTASSIUM CHL 20 Meq TABLET PO SCH (10:00)
[2022-10-14] MEDS: FUROSEMIDE 40 MG/4 ML VIAL IV SCH (10:00)
[2022-10-14] MEDS: NICOTINE 21MG/24 HR TOPICAL PATCH TD SCH (10:00)
[2022-10-14] MEDS: CARVEDILOL 3.125 MG TAB PO SCH (10:00)
[2022-10-14] MEDS ORDERED: CAR3125T OR (10:35)
[2022-10-14] MEDS ORDERED: FURO1TAB33 PO (10:35)
[2022-10-14] MEDS ORDERED: EMPA1TAB PO (10:35)
[2022-10-14 10:43] LABS: BUN/Creatinine Ratio 23.7; Calcium 8.2 mg/dL (8.5-10.1); Potassium 4.3 mmol/L (3.5-5.1)
[2022-10-14 13:00] VITALS: BP 97/64
[2022-10-14] MEDS: HYDROcodone-ACET 10/325MG TAB PO PRN (13:35)
[2022-10-14 16:46] VITALS: BP 97/64
[2022-10-14 17:00] VITALS: BP 101/94
== END 2022-10-14 17:52 | disposition home or self-care (01) | DRG 286 ==
LOC: ER 13:35 → TELE 22:16 → TELE-EAST 10-10 23:34
PROVIDERS: ADMIT Nurse Practitioner Family; ATTEND Internal Medicine Geriatric Medicine
PROC: 4A023N7 Measurement of Cardiac Sampling and Pressure, Left Heart, Percutaneous Approach (ICD-10-PCS; principal; 2022-10-12)
PROC: B211YZZ Fluoroscopy of Multiple Coronary Arteries using Other Contrast (ICD-10-PCS; 2022-10-12)
DX: I50.43 Acute on chronic combined systolic (congestive) and diastolic (congestive) heart failure (principal); J96.01 Acute respiratory failure with hypoxia; E44.0 Moderate protein-calorie malnutrition; I42.8 Other cardiomyopathies; J44.0 Chronic obstructive pulmonary disease with (acute) lower respiratory infection; N17.9 Acute kidney failure, unspecified; J98.11 Atelectasis; J91.8 Pleural effusion in other conditions classified elsewhere; E78.5 Hyperlipidemia, unspecified; Z20.822 Contact with and (suspected) exposure to COVID-19; E88.09 Other disorders of plasma-protein metabolism, not elsewhere classified; F17.210 Nicotine dependence, cigarettes, uncomplicated; G89.4 Chronic pain syndrome; I25.10 Atherosclerotic heart disease of native coronary artery without angina pectoris; Z96.659 Presence of unspecified artificial knee joint; Z68.24 Body mass index [BMI] 24.0-24.9, adult; Z87.11 Personal history of peptic ulcer disease; Z82.0 Family history of epilepsy and other diseases of the nervous system; Z79.899 Other long term (current) drug therapy; Z71.6 Tobacco abuse counseling
CPT/HCPCS: 36415; 71045; 71275; 80048; 80053; 80061; 81001; 83036; 83880; 84443; 84484; 85025; 85379; 85610; 86850; 86900; 86901; 87426; 93005; 93306; 93458; 96365; 99152; 99291; G0378; J2250; Q9967

== ENCOUNTER 2023-01-03 06:10 | Emergency (ER) | payer MEDICARE ==
[~2023-01-03] VITALS: Ht 172.7 cm; Wt 52.0 kg
[~2023-01-03 06:10] MED LIST changes: +CAR3125T OR; +EMPA1TAB PO; +FURO1TAB33 PO; +LOVA40TA72 PO
[2023-01-03 07:07] LABS: Eosinophils # (auto) 0.1 10 ^3/uL (0-0.8); Hemoglobin 11.8 g/dL (13.5-17.5); Lymphocytes # (auto) 1.2 10 ^3/uL (0.4-5.4); Monocytes # (auto) 0.4 10 ^3/uL (0-1.3); Nucleated Red Blood Cells % 0.1 %; White Blood Cell 5.7 10^3/uL (4.4-10.8)
[2023-01-03 07:11] LABS: Basophils # (auto) 0 10 ^3/uL (0-0.2); Basophils % (auto) 0.8 % (0.0-2.0); Eosinophils % (auto) 1.7 % (0.0-7.0); Hematocrit 37.1 % (41.0-53.0); Lymphocytes % (auto) 20.5 % (10.0-50.0); Mean Corpuscular Hemoglobin 26.7 pg (28.0-32.0); Mean Corpuscular Hgb Conc. 31.8 g/dL (32.0-36.0); Mean Corpuscular Volume 84.2 fL (80.0-100.0); Monocytes % (auto) 7.2 % (0.0-12.0); Neutrophils % (auto) 69.8 % (37.0-80.0); Red Cell Distribution Width 16.7 % (11.8-14.3)
[2023-01-03 07:13] LABS: INR 1.12 (0.9-1.15); Partial Thromboplastin Time 32.1 sec (24.6-33.4)
[2023-01-03 07:48] LABS: Albumin 3.1 g/dL (3.4-5.0); Calcium 8.4 mg/dL (8.5-10.1); Magnesium 2.1 mg/dL (1.6-2.6); Potassium 3.5 mmol/L (3.5-5.1)
[2023-01-03 07:51] LABS: BUN/Creatinine Ratio 38.2 (10.0-20.0); Bilirubin, Total 0.3 mg/dL (0.2-1.0); Total Protein 7.2 g/dL (6.4-8.2)
[2023-01-03 10:40] LABS: Urine Bacteria NONE SEEN /hpf (None Seen); Urine Blood Negative /uL (Negative); Urine Specific Gravity 1.028 (1.001-1.035); Urine WBC 1 /hpf (0 - 3)
[2023-01-03] MEDS ORDERED: PIPERACILLIN-TAZOB 3.375GM 100 ML IV ONE (11:15)
[2023-01-03] MEDS ORDERED: FUROSEMIDE 40 MG/4 ML VIAL IV ONE (11:15)
[2023-01-03] MEDS ORDERED: MORPHINE SULFATE INJ 2 MG/ml SYRG IV PRN (12:00)
[2023-01-03] MEDS ORDERED: POTASSIUM CHL 20 Meq TABLET PO ONE (12:00)
[2023-01-03] MEDS ORDERED: NITROGLYCERIN 0.4 MG SL TAB SL PRN (12:00)
[2023-01-03] MEDS ORDERED: PANTOPRAZOLE 40 MG/10 ML VIAL INJ IV ONE (12:00)
[2023-01-03] MEDS ORDERED: VANCOMYCIN PER PHARMACY 0 MG IV SCH (12:30)
[2023-01-03 13:22] LABS: Cholesterol 139 mg/dL (< 200); HDL Cholesterol 40 mg/dL (40-59); LDL Cholesterol 89 mg/dL (< 100); Triglycerides 96 mg/dL (< 150)
[2023-01-03] MEDS ORDERED: SPIRONOLACTONE 25 MG TAB PO ONE (13:45)
[2023-01-03] MEDS ORDERED: PIPERACILLIN-TAZOB 3.375GM 100 ML IV SCH (14:00)
[2023-01-03] MEDS ORDERED: VANCOMYCIN 1GM/250ML 250 ML IV ONE (14:00)
[2023-01-03] MEDS ORDERED: METR500T PO (14:27)
[2023-01-03] MEDS ORDERED: CEPH-510 PO (14:27)
[2023-01-03 14:44] VITALS: BP 123/86
[2023-01-03] MEDS ORDERED: FUROSEMIDE 40 MG/4 ML VIAL IV SCH (18:00)
[2023-01-04] MEDS ORDERED: PANTOPRAZOLE 40 MG/10 ML VIAL INJ IV SCH (10:00)
[2023-01-04] MEDS ORDERED: POTASSIUM CHL 20 Meq TABLET PO SCH (10:00)
[2023-01-04] MEDS ORDERED: ENOXAPARIN SOD 40 MG/0.4 ML SYRINGE SC SCH (10:00)
== END 2023-01-03 14:45 | disposition home or self-care (01) ==
LOC: ER 06:10
DX: I50.9 Heart failure, unspecified (principal); L03.311 Cellulitis of abdominal wall; E78.5 Hyperlipidemia, unspecified; Z88.6 Allergy status to analgesic agent; Z88.8 Allergy status to other drugs, medicaments and biological substances; Z79.899 Other long term (current) drug therapy
CPT/HCPCS: 36415; 71045; 74176; 80053; 80061; 81001; 83036; 83605; 83735; 83880; 84443; 84484; 85025; 85610; 85730; 87040; 87077; 87186; 87205; 93005; 96365; 96375; 99285; C9113; J1940; J2543

== ENCOUNTER 2023-01-24 15:46 | Emergency (ER) | payer MEDICARE ==
[~2023-01-24] VITALS: Ht 172.7 cm; Wt 51.3 kg
[~2023-01-24 15:46] MED LIST changes: +CEPH-510 PO; +METR500T PO
[2023-01-24 16:26] VITALS: BP 103/59
== END 2023-01-24 23:09 | disposition left against medical advice (07) ==
LOC: ER 15:46
DX: R22.43 Localized swelling, mass and lump, lower limb, bilateral (principal); Z53.21 Procedure and treatment not carried out due to patient leaving prior to being seen by health care provider

== ENCOUNTER 2023-01-29 13:57 | Emergency (ER) | payer MEDICARE ==
[~2023-01-29] VITALS: Ht 172.7 cm; Wt 50.0 kg
[~2023-01-29 13:57] MED LIST changes: +GABA-1250 PO; -GABA300C10 PO
[2023-01-29 15:25] LABS: Basophils % (auto) 0.5 % (0.0-2.0); Eosinophils # (auto) 0 10 ^3/uL (0-0.8); Hematocrit 39.6 % (41.0-53.0); Hemoglobin 12.7 g/dL (13.5-17.5); Lymphocytes # (auto) 0.9 10 ^3/uL (0.4-5.4)
[2023-01-29 15:26] LABS: Basophils # (auto) 0.1 10 ^3/uL (0-0.2); Lymphocytes % (auto) 9.1 % (10.0-50.0); Mean Corpuscular Hemoglobin 26.4 pg (28.0-32.0); Mean Corpuscular Volume 82.3 fL (80.0-100.0); Monocytes # (auto) 0.8 10 ^3/uL (0-1.3); Monocytes % (auto) 7.7 % (0.0-12.0); Neutrophils # (auto) 8.1 10 ^3/uL (1.6-8.6); Neutrophils % (auto) 82.7 % (37.0-80.0); Red Blood Cells 4.82 10^6/uL (4.5-5.90); White Blood Cell 9.8 10^3/uL (4.4-10.8)
[2023-01-29 15:31] LABS: Red Cell Distribution Width 22.2 % (11.8-14.3)
[2023-01-29 15:32] LABS: Nucleated Red Blood Cells % 0.5 %
[2023-01-29 15:41] LABS: Albumin 3.2 g/dL (3.4-5.0); Calcium 9.7 mg/dL (8.5-10.1); INR 1.03 (0.9-1.15); Magnesium 2.5 mg/dL (1.6-2.6)
[2023-01-29 15:43] LABS: Lactic Acid w/Reflex 2.3 mmol/L (0.4-2.0)
[2023-01-29 15:45] LABS: Bilirubin, Total 0.5 mg/dL (0.2-1.0); Phosphorus 3.6 mg/dL (2.5-4.90); Total Protein 8.2 g/dL (6.4-8.2)
[2023-01-29 16:23] LABS: Potassium 2.8 mmol/L (3.5-5.1)
[2023-01-29] MEDS ORDERED: POTASSIUM EFFERVESENT TAB 25 MEQ PO ONE (16:45)
[2023-01-29] MEDS ORDERED: IOHEXOL 300 MG/ML 100ML BOTTLE IJ ONE (17:00)
[2023-01-29] MEDS ORDERED: LORazepam 2MG/ML-1ML VIAL IV ONE (19:15)
[2023-01-29] MEDS ORDERED: chlordiazePOXIDE HCL 25 MG CAP PO ONE (20:00)
[2023-01-29 22:20] VITALS: BP 118/77
[2023-01-29] MEDS ORDERED: CHL25C GT ×2 (22:21)
[2023-01-29] MEDS ORDERED: ONDA-144 PO ×2 (22:21)
== END 2023-01-29 22:39 | disposition home or self-care (01) ==
LOC: EDBD 13:57 → ER 13:57
DX: F13.239 Sedative, hypnotic or anxiolytic dependence with withdrawal, unspecified (principal); R11.2 Nausea with vomiting, unspecified; R19.7 Diarrhea, unspecified; E78.5 Hyperlipidemia, unspecified; Z87.11 Personal history of peptic ulcer disease
CPT/HCPCS: 36415; 71045; 74177; 80053; 83605; 83690; 83735; 84100; 84484; 85025; 85610; 87040; 93005; 96374

== ENCOUNTER 2023-02-01 01:06 | Inpatient (IN) | payer MEDICARE ==
[~2023-02-01] VITALS: Ht 172.7 cm; Wt 52.0 kg
[~2023-02-01 01:06] MED LIST changes: +CHL25C GT; +ONDA-144 PO
[2023-02-01 01:52] LABS: Basophils # (auto) 0 10 ^3/uL (0-0.2); Basophils % (auto) 0.3 % (0.0-2.0); Eosinophils # (auto) 0 10 ^3/uL (0-0.8)
[2023-02-01 01:54] LABS: Eosinophils % (auto) 0.1 % (0.0-7.0); Hematocrit 37.4 % (41.0-53.0); Hemoglobin 12.1 g/dL (13.5-17.5); Lymphocytes % (auto) 9.6 % (10.0-50.0); Mean Corpuscular Hemoglobin 26.8 pg (28.0-32.0); Mean Corpuscular Hgb Conc. 32.3 g/dL (32.0-36.0); Mean Corpuscular Volume 82.7 fL (80.0-100.0); Monocytes # (auto) 0.6 10 ^3/uL (0-1.3); Monocytes % (auto) 6.5 % (0.0-12.0); Neutrophils # (auto) 8.3 10 ^3/uL (1.6-8.6); Neutrophils % (auto) 83.5 % (37.0-80.0); Red Blood Cells 4.51 10^6/uL (4.5-5.90); White Blood Cell 9.9 10^3/uL (4.4-10.8)
[2023-02-01 01:56] LABS: Red Cell Distribution Width 21.9 % (11.8-14.3)
[2023-02-01 02:00] LABS: Albumin 2.9 g/dL (3.4-5.0); BUN/Creatinine Ratio 19.7 (10.0-20.0); Calcium 10.3 mg/dL (8.5-10.1); INR 1.05 (0.9-1.15); Magnesium 2.2 mg/dL (1.6-2.6); Partial Thromboplastin Time 26.2 sec (24.6-33.4)
[2023-02-01 02:03] LABS: Bilirubin, Total 0.4 mg/dL (0.2-1.0)
[2023-02-01 02:04] LABS: Potassium 2.8 mmol/L (3.5-5.1)
[2023-02-01] MEDS: POTASSIUM CHL 20MEQ/100ML 100 ML IV SCH ×3 (02:28→06:24)
[2023-02-01] MEDS ORDERED: ONDANSETRON HCL 4 MG/2 ML VIAL IV ONE (02:30)
[2023-02-01] MEDS ORDERED: LORazepam 2MG/ML-1ML VIAL IV ONE (02:30)
[2023-02-01] MEDS ORDERED: TEMAZEPAM 15 MG CAP PO PRN (05:45)
[2023-02-01] MEDS ORDERED: ACETAMINOPHEN 325 MG TAB PO PRN (05:45)
[2023-02-01] MEDS ORDERED: LORazepam 0.5 MG TAB PO PRN (05:45)
[2023-02-01] MEDS: ONDANSETRON HCL 4 MG/2 ML VIAL IV PRN (07:34)
[2023-02-01 10:04] VITALS: BP 108/69
[2023-02-01] MEDS: SACUBITRIL-VALSARTAN 24mg/26mg TAB PO SCH ×2 (10:50→22:00)
[2023-02-01] MEDS: CARVEDILOL 3.125 MG TAB PO SCH ×2 (10:51→22:00)
[2023-02-01] MEDS: TOPIRAMATE 25 MG TAB PO SCH ×2 (10:52→22:13)
[2023-02-01] MEDS: PANTOPRAZOLE 40 MG TAB PO SCH (10:52)
[2023-02-01 12:37] VITALS: BP 122/71
[2023-02-01] MEDS ORDERED: SULF400T11 PO (14:07)
[2023-02-01] MEDS ORDERED: HYDR-4798 PO (14:07)
[2023-02-01] MEDS ORDERED: TAMS0.4C36 PO (14:08)
[2023-02-01] MEDS ORDERED: METOCLOPRAMIDE HCL 5MG/ml INJ 2ml VIAL IV ONE (15:15)
[2023-02-01] MEDS ORDERED: CLINIMIX PER PHARMACY 0 ML IV SCH (15:15)
[2023-02-01] MEDS: LORazepam 0.5 MG TAB PO PRN (16:19)
[2023-02-01 17:28] VITALS: BP 112/59
[2023-02-01] MEDS: AMINO ACID INFUSION IN D10W 1,000 ML IV NR (20:36)
[2023-02-01] MEDS: HYDROcodone-ACET 5/325MG TAB PO PRN (21:19)
[2023-02-01 22:00] VITALS: BP 97/52
[2023-02-01] MEDS: SUCRALFATE 1 GM/10 ML ORAL SUSP PO SCH (22:13)
[2023-02-01] MEDS: ATORVASTATIN 20 MG TAB PO SCH (22:13)
[2023-02-02] MEDS ORDERED: DEXTROSE (50%) 50ML SYRG IV SCH
[2023-02-02] MEDS: ACCU-CHEK COMFORT CURVE STRIP VI SCH ×4 (00:04→17:30)
[2023-02-02 05:00] VITALS: BP 106/57
[2023-02-02] MEDS: ONDANSETRON HCL 4 MG/2 ML VIAL IV PRN (05:00)
[2023-02-02] MEDS: MORPHINE SULFATE INJ 2 MG/ml SYRG IV PRN ×4 (05:01→23:14)
[2023-02-02] MEDS: InsuLIN REG 1unit/0.01ml Soln (100units/ml) SC SCH ×4 (06:00→17:29)
[2023-02-02 06:06] LABS: Potassium 3.7 mmol/L (3.5-5.1)
[2023-02-02 06:17] LABS: Albumin 2.6 g/dL (3.4-5.0); Calcium 8.3 mg/dL (8.5-10.1); Magnesium 2.4 mg/dL (1.6-2.6); Phosphorus 3.5 mg/dL (2.5-4.90)
[2023-02-02] MEDS: SUCRALFATE 1 GM/10 ML ORAL SUSP PO SCH ×4 (06:33→23:07)
[2023-02-02] MEDS: EMPAGLIFLOZIN 10 MG TAB PO SCH (06:33)
[2023-02-02 07:17] LABS: Basophils # (auto) 0 10 ^3/uL (0-0.2); Basophils % (auto) 0.5 % (0.0-2.0); Eosinophils # (auto) 0.1 10 ^3/uL (0-0.8); Eosinophils % (auto) 0.9 % (0.0-7.0); Hematocrit 36.6 % (41.0-53.0); Hemoglobin 11.4 g/dL (13.5-17.5); Lymphocytes # (auto) 1.9 10 ^3/uL (0.4-5.4); Lymphocytes % (auto) 20.2 % (10.0-50.0); Mean Corpuscular Hgb Conc. 31.2 g/dL (32.0-36.0); Mean Corpuscular Volume 86.8 fL (80.0-100.0); Monocytes # (auto) 0.7 10 ^3/uL (0-1.3); Monocytes % (auto) 7.6 % (0.0-12.0); Neutrophils # (auto) 6.6 10 ^3/uL (1.6-8.6); Neutrophils % (auto) 70.8 % (37.0-80.0); Nucleated Red Blood Cells % 0.2 %; Red Blood Cells 4.22 10^6/uL (4.5-5.90); White Blood Cell 9.3 10^3/uL (4.4-10.8)
[2023-02-02 07:18] LABS: Red Cell Distribution Width 21.9 % (11.8-14.3)
[2023-02-02 08:00] VITALS: BP 82/58
[2023-02-02] MEDS ORDERED: NALOXONE HCL 0.4 MG/ML VIAL ONE (08:49)
[2023-02-02] MEDS ORDERED: SODIUM CHLORIDE LOCK 10 ML ONE ×3 (08:49→15:23)
[2023-02-02] MEDS ORDERED: FLUMAZENIL 0.1 MG/ML INJ 10ML MDV IV ONE (08:49)
[2023-02-02] MEDS ORDERED: fentaNYL CITRATE 100 MCG/2 ML VL ONE (08:50)
[2023-02-02] MEDS ORDERED: diphenhdrAMINE HCL 50 MG/1 ML VL ONE (08:50)
[2023-02-02] MEDS ORDERED: MIDAZOLAM HCL 5 MG/ML-1ML VIAL ONE (08:50)
[2023-02-02 09:00] VITALS: BP 132/69
[2023-02-02] MEDS: TOPIRAMATE 25 MG TAB PO SCH ×2 (09:17→23:06)
[2023-02-02] MEDS: PANTOPRAZOLE 40 MG TAB PO SCH (09:17)
[2023-02-02] MEDS: LORazepam 0.5 MG TAB PO PRN (09:17)
[2023-02-02] MEDS: SACUBITRIL-VALSARTAN 24mg/26mg TAB PO SCH ×2 (09:17→23:07)
[2023-02-02] MEDS: CARVEDILOL 3.125 MG TAB PO SCH ×2 (09:18→22:00)
[2023-02-02] MEDS: cefTRIAXone 1GM/50ML D5W 50 ML IV SCH (09:18)
[2023-02-02 13:00] VITALS: BP 98/54
[2023-02-02] MEDS ORDERED: PROPOFOL 10 MG/ML 20 ML IV ONE (14:57)
[2023-02-02] MEDS ORDERED: LIDOCAINE 2% (LOCAL ANESTH.) PF 5ml SDV ONE (14:57)
[2023-02-02] MEDS ORDERED: ePHEDrine SULFATE 50 MG/ML AMP ONE (15:07)
[2023-02-02] MEDS ORDERED: PHENYLEPHRINE HCL 10 MG/ML VL ONE (15:23)
[2023-02-02] MEDS: TAMSULOSIN HYDROCHLORIDE 0.4 MG CAP PO SCH (17:43)
[2023-02-02] MEDS: HYDROcodone-ACET 5/325MG TAB PO PRN (20:42)
[2023-02-02] MEDS: AMINO ACID INFUSION IN D10W 1,000 ML IV NR (21:37)
[2023-02-02 22:00] VITALS: BP 126/62
[2023-02-02] MEDS: ATORVASTATIN 20 MG TAB PO SCH (23:07)
[2023-02-03] MEDS: ACCU-CHEK COMFORT CURVE STRIP VI SCH ×4 (00:09→17:53)
[2023-02-03] MEDS: HYDROcodone-ACET 5/325MG TAB PO PRN ×4 (01:54→21:04)
[2023-02-03] MEDS: LORazepam 0.5 MG TAB PO PRN ×2 (03:23→15:37)
[2023-02-03 05:00] VITALS: BP 108/57
[2023-02-03] MEDS: InsuLIN REG 1unit/0.01ml Soln (100units/ml) SC SCH ×4 (06:00→17:53)
[2023-02-03] MEDS: SUCRALFATE 1 GM/10 ML ORAL SUSP PO SCH ×4 (06:15→22:07)
[2023-02-03] MEDS: EMPAGLIFLOZIN 10 MG TAB PO SCH (06:15)
[2023-02-03 06:18] LABS: Potassium 3.7 mmol/L (3.5-5.1)
[2023-02-03 06:27] LABS: Albumin 2.5 g/dL (3.4-5.0); BUN/Creatinine Ratio 36.4 (10.0-20.0); Bilirubin, Total 0.3 mg/dL (0.2-1.0); Calcium 8.2 mg/dL (8.5-10.1); Magnesium 2.3 mg/dL (1.6-2.6); Phosphorus 2.6 mg/dL (2.5-4.90); Total Protein 6.3 g/dL (6.4-8.2)
[2023-02-03 08:00] VITALS: BP 103/64
[2023-02-03] MEDS: SACUBITRIL-VALSARTAN 24mg/26mg TAB PO SCH ×2 (08:55→22:06)
[2023-02-03] MEDS: cefTRIAXone 1GM/50ML D5W 50 ML IV SCH (08:55)
[2023-02-03] MEDS: TOPIRAMATE 25 MG TAB PO SCH ×2 (08:56→22:06)
[2023-02-03] MEDS: PANTOPRAZOLE 40 MG TAB PO SCH (08:56)
[2023-02-03] MEDS: CARVEDILOL 3.125 MG TAB PO SCH ×2 (09:17→22:00)
[2023-02-03] MEDS ORDERED: GASTROGRAFIN 120 ML SOL ONE (09:40)
[2023-02-03 13:18] VITALS: BP 93/54
[2023-02-03 17:00] VITALS: BP 93/54
[2023-02-03] MEDS: TAMSULOSIN HYDROCHLORIDE 0.4 MG CAP PO SCH (17:47)
[2023-02-03 22:00] VITALS: BP 107/64
[2023-02-03] MEDS: ATORVASTATIN 20 MG TAB PO SCH (22:07)
[2023-02-04] MEDS: HYDROcodone-ACET 5/325MG TAB PO PRN ×2 (03:53→10:08)
[2023-02-04 05:00] VITALS: BP 99/56
[2023-02-04] MEDS: InsuLIN REG 1unit/0.01ml Soln (100units/ml) SC SCH ×3 (06:00→11:24)
[2023-02-04] MEDS: SUCRALFATE 1 GM/10 ML ORAL SUSP PO SCH ×3 (06:19→17:00)
[2023-02-04] MEDS: EMPAGLIFLOZIN 10 MG TAB PO SCH (06:19)
[2023-02-04] MEDS: ACCU-CHEK COMFORT CURVE STRIP VI SCH ×3 (06:21→11:24)
[2023-02-04] MEDS ORDERED: LORA-1121 PO (08:17)
[2023-02-04] MEDS ORDERED: HYDR-4902 PO (08:17)
[2023-02-04] MEDS ORDERED: PANT40TA2 PO (08:17)
[2023-02-04 08:25] VITALS: BP 84/47
[2023-02-04] MEDS: CARVEDILOL 3.125 MG TAB PO SCH (09:54)
[2023-02-04] MEDS: SACUBITRIL-VALSARTAN 24mg/26mg TAB PO SCH (09:54)
[2023-02-04] MEDS: TOPIRAMATE 25 MG TAB PO SCH (09:54)
[2023-02-04] MEDS: cefTRIAXone 1GM/50ML D5W 50 ML IV SCH (09:54)
[2023-02-04] MEDS: PANTOPRAZOLE 40 MG TAB PO SCH (09:54)
[2023-02-04] MEDS: LORazepam 0.5 MG TAB PO PRN (10:07)
[2023-02-04 12:25] VITALS: BP 87/52
[2023-02-04 14:07] VITALS: BP 94/56
== END 2023-02-04 16:50 | disposition home or self-care (01) | DRG 91 ==
LOC: EDBD 01:06 → ER 01:06 → OVERFLOW 05:51 → WEST WING 09:38
PROVIDERS: ADMIT Nurse Practitioner; ATTEND Nurse Practitioner Acute Care
PROC: 0DB98ZX Excision of Duodenum, Via Natural or Artificial Opening Endoscopic, Diagnostic (ICD-10-PCS; 2023-02-02)
PROC: 0DB68ZX Excision of Stomach, Via Natural or Artificial Opening Endoscopic, Diagnostic (ICD-10-PCS; 2023-02-02)
PROC: 0DB58ZX Excision of Esophagus, Via Natural or Artificial Opening Endoscopic, Diagnostic (ICD-10-PCS; principal; 2023-02-02 14:59)
DX: G89.4 Chronic pain syndrome (principal); E43 Unspecified severe protein-calorie malnutrition; F13.239 Sedative, hypnotic or anxiolytic dependence with withdrawal, unspecified; I50.22 Chronic systolic (congestive) heart failure; K22.10 Ulcer of esophagus without bleeding; Z68.1 Body mass index [BMI] 19.9 or less, adult; E11.43 Type 2 diabetes mellitus with diabetic autonomic (poly)neuropathy; R64 Cachexia; K29.70 Gastritis, unspecified, without bleeding; R62.7 Adult failure to thrive; K29.80 Duodenitis without bleeding; K22.2 Esophageal obstruction; E87.6 Hypokalemia; I11.0 Hypertensive heart disease with heart failure; F41.9 Anxiety disorder, unspecified; E78.5 Hyperlipidemia, unspecified; K31.84 Gastroparesis; K26.9 Duodenal ulcer, unspecified as acute or chronic, without hemorrhage or perforation; K44.9 Diaphragmatic hernia without obstruction or gangrene; J44.9 Chronic obstructive pulmonary disease, unspecified; Z87.11 Personal history of peptic ulcer disease; Z82.0 Family history of epilepsy and other diseases of the nervous system; Z79.899 Other long term (current) drug therapy
CPT/HCPCS: 36415; 71045; 74018; 74177; 74246; 80053; 80069; 82962; 83605; 83690; 83735; 84100; 84484; 85025; 85610; 85730; 86850; 86900; 86901; 87040; 87081; 93005; 96374; 96375; G0378; J0696; J2001; J2250; J2405; J2704; J3480

== ENCOUNTER 2023-04-05 18:27 | Emergency (ER) | payer MEDICARE, OTHER ==
[~2023-04-05] VITALS: Ht 172.7 cm; Wt 51.1 kg
[~2023-04-05 18:27] MED LIST changes: -CAR3125T OR; -CEPH-510 PO; -CHL25C GT; -CITA-73 PO; -EMPA1TAB PO; -FURO1TAB33 PO; -GABA-1250 PO; -HYDR-4072 PO; +HYDR-4798 PO; +HYDR-4902 PO; +LORA-1121 PO; -LORA-655 PO; -METR500T PO; -ONDA-144 PO; +SULF400T11 PO; +TAMS0.4C36 PO; -TOPI25TA84
[2023-04-05 18:57] VITALS: BP 141/57; PULSE 106; RESP 18; O2SAT 99
[2023-04-05] MEDS ORDERED: ASPirin 81 mg TAB PO ONE (19:15)
[2023-04-05 19:40] LABS: Basophils # (auto) 0 10 ^3/uL (0-0.2); Eosinophils # (auto) 0.1 10 ^3/uL (0-0.8); Hemoglobin 11.8 g/dL (13.5-17.5); Lymphocytes # (auto) 1.1 10 ^3/uL (0.4-5.4); Monocytes # (auto) 0.6 10 ^3/uL (0-1.3); Neutrophils # (auto) 5.3 10 ^3/uL (1.6-8.6)
[2023-04-05 19:42] LABS: Basophils % (auto) 0.5 % (0.0-2.0); Eosinophils % (auto) 1.3 % (0.0-7.0); Hematocrit 39.1 % (41.0-53.0); Lymphocytes % (auto) 15.6 % (10.0-50.0); Mean Corpuscular Hemoglobin 24.5 pg (28.0-32.0); Mean Corpuscular Hgb Conc. 30.1 g/dL (32.0-36.0); Mean Corpuscular Volume 81.6 fL (80.0-100.0); Monocytes % (auto) 8.2 % (0.0-12.0); Neutrophils % (auto) 74.4 % (37.0-80.0); Nucleated Red Blood Cells % 0.1 %; Red Blood Cells 4.79 10^6/uL (4.5-5.90); Red Cell Distribution Width 18.2 % (11.8-14.3); White Blood Cell 7.1 10^3/uL (4.4-10.8)
[2023-04-05 20:09] LABS: Albumin 2.9 g/dL (3.4-5.0); Calcium 8.1 mg/dL (8.5-10.1); Potassium 3.3 mmol/L (3.5-5.1)
[2023-04-05 20:13] LABS: Bilirubin, Total 0.3 mg/dL (0.2-1.0); Total Protein 6.4 g/dL (6.4-8.2)
== END 2023-04-05 20:39 | disposition left against medical advice (07) ==
LOC: ER 18:27
DX: R55 Syncope and collapse (principal); Z88.8 Allergy status to other drugs, medicaments and biological substances; Z79.899 Other long term (current) drug therapy
CPT/HCPCS: 36415; 80053; 82962; 84484; 85025; 93005

== ENCOUNTER 2023-07-10 20:17 | Emergency (ER) | payer OTHER ==
[~2023-07-10] VITALS: Ht 167.6 cm; Wt 67.0 kg
[2023-07-10] MEDS ORDERED: LIDOCAINE 4MG/ML IV SOLN 500ML BAG IV ONE (20:18)
[2023-07-10] MEDS ORDERED: EPINEPHrine HCL 1 MG/10 ML SYRG IV ONE (20:18)
[2023-07-10] MEDS ORDERED: CALCIUM CHLOR(10%) 100MG/ML 10ML SYRINGE IV ONE (20:18)
[2023-07-10] MEDS ORDERED: SODIUM BICARBONATE 8.4% INJ 50ML SYRINGE IV ONE (20:18)
[2023-07-10 20:27] VITALS: O2SAT 96
[2023-07-10 20:34] LABS: Basophils # (auto) 0.1 10 ^3/uL (0-0.2); Eosinophils # (auto) 0 10 ^3/uL (0-0.8); Monocytes # (auto) 0.8 10 ^3/uL (0-1.3); Neutrophils # (auto) 9.4 10 ^3/uL (1.6-8.6); Nucleated Red Blood Cells % 0.1 %; White Blood Cell 10.9 10^3/uL (4.4-10.8)
[2023-07-10 20:36] LABS: Basophils % (auto) 0.6 % (0.0-2.0); Hematocrit 40.6 % (41.0-53.0); Hemoglobin 12.3 g/dL (13.5-17.5); Lymphocytes # (auto) 0.7 10 ^3/uL (0.4-5.4); Lymphocytes % (auto) 6.2 % (10.0-50.0); Mean Corpuscular Hemoglobin 22.9 pg (28.0-32.0); Mean Corpuscular Hgb Conc. 30.4 g/dL (32.0-36.0); Mean Corpuscular Volume 75.4 fL (80.0-100.0); Monocytes % (auto) 7.5 % (0.0-12.0); Neutrophils % (auto) 85.7 % (37.0-80.0); Red Blood Cells 5.38 10^6/uL (4.5-5.90); Red Cell Distribution Width 19.4 % (11.8-14.3)
[2023-07-10] MEDS ORDERED: ONDANSETRON HCL 4 MG/2 ML VIAL IM ONE (20:45)
[2023-07-10] MEDS ORDERED: MORPHINE SULFATE INJ 2 MG/ml SYRG IM ONE (20:45)
[2023-07-10 20:53] LABS: Alanine Aminotransferase 60 U/L (7-40); Albumin 3.7 g/dL (3.2-4.8); Alkaline Phosphatase 106 U/L (46-116); Anion Gap 12 (5-15); Aspartate Aminotransferase 77 U/L (13-40); BUN/Creatinine Ratio 34.7 (10.0-20.0); Blood Urea Nitrogen 41 mg/dL (9-23); Calcium 9.1 mg/dL (8.7-10.4); Carbon Dioxide 23 mmol/L (20-30); Chloride 102 mmol/L (98-107); Glucose 134 mg/dL (74-106); Magnesium 1.8 mg/dL (1.6-2.6); Sodium 137 mmol/L (136-145)
[2023-07-10 20:54] LABS: Bilirubin, Total 1.5 mg/dL (0.2-1.0); Total Protein 6.4 g/dL (5.7-8.2)
[2023-07-10 21:24] VITALS: BP 89/68; PULSE 110; RESP 22
[2023-07-10] MEDS ORDERED: NALOXONE HCL 1MG/ML 2ML SYRINGE ONE (22:13)
[2023-07-10] MEDS ORDERED: SODIUM BICARBONATE 8.4 % INJ 50ML VIAL IV ONE (22:26)
[2023-07-10] MEDS ORDERED: EPINEPHrine HCL 1 MG/10 ML SYRG ONE (22:38)
== END 2023-07-10 22:38 ==
LOC: ER 20:17 → EDBD 20:17 → ER 22:38
DX: R07.89 Other chest pain (principal); R06.02 Shortness of breath; I50.9 Heart failure, unspecified; E78.5 Hyperlipidemia, unspecified; Z79.899 Other long term (current) drug therapy
CPT/HCPCS: 31500; 36415; 71045; 80053; 83735; 84484; 85025; 92950; 93005; 96372; 99285; J0171; J2001; J2270; J2310; J2405; 99291; 99292